=== PATIENT | male | born 1995 | race Caucasian/White ===

== ENCOUNTER 2019-07-29 11:18 | Emergency (ER) | payer BC ==
[2019-07-29 11:39] VITALS: BP 149/86
--- NOTE | 2019-07-29 12:01 | UC ---
Throat Pain/Nasal [place] HPI - HPI Summary HPI Summary: sore throat x 1 day pain is 5 out of 10 , no cough , no nasal congestion , no pnd low grade fever - History of Current Complaint Chief Complaint: UCRespiratory Stated Complaint: ST Time Seen by Provider: 07/29/19 11:47 Hx Obtained From: Patient Onset/Duration: Sudden Onset, Lasting Days - 1, Still Present Severity: Moderate Pain Intensity: 0 Cough: None Associated Signs & Symptoms: Positive: Fever. Negative: Wheezing, Hoarseness, Sinus Discomfort, Nasal Discharge, Vomiting, Rash - Allergies/Home Medications Allergies/Adverse Reactions: Allergies Allergy/AdvReac Type Severity Reaction Status Date / Time amoxicillin Allergy Altered Verified 07/29/19 11:34 Mental Status Home Medications: Home Medications Atorvastatin* [Lipitor 10 MG*] 40 mg PO DAILY 07/29/19 [History Confirmed ] L.acidoph,Paracasei, B.lactis [Probiotic] 1 cap PO DAILY 07/29/19 [History Confirmed 07/29/19] Montelukast Sodium 10 mg PO DAILY 07/29/19 [History Confirmed 07/29/19] PMH/Surg Hx/FS Hx/Imm Hx Previously Healthy: Yes - Surgical History Surgical History: Yes Surgery Procedure, Year, and Place: hernia jesse inguinal - Family History Known Family History: Negative: Hypertension, Diabetes - Social History Alcohol Use: Occasionally Substance Use Type: None Smoking Status (MU): Never Smoked Tobacco Review of Systems All Other Systems Reviewed And Are Negative: Yes Constitutional: Positive: Fever, Chills, Fatigue Skin: Positive: Negative Eyes: Positive: Negative ENT: Positive: Sore Throat Respiratory: Positive: Negative Is Patient Immunocompromised?: No Physical Exam Triage Information Reviewed: Yes Appearance: Well-Appearing, No Pain Distress, Well-Nourished Vital Signs: Initial Vital Signs Temp 98 F 07/29/19 11:36 Pulse 79 07/29/19 11:36 Resp 18 07/29/19 11:36 BP 149/86 07/29/19 11:36 Pulse Ox 100 07/29/19 11:36 Vital Signs Reviewed: Yes Eye Exam: Normal Eyes: Positive: Conjunctiva Clear ENT: Positive: Normal ENT inspection, Hearing grossly normal, Pharyngeal erythema, Nasal congestion, Nasal drainage, TMs normal Respiratory: Positive: Chest non-tender, Lungs clear, Normal breath sounds Cardiovascular: Positive: RRR, No Murmur, Pulses Normal Abdomen Description: Positive: Nontender, No Organomegaly, Soft, Bruit Male Genital Exam: Positive: Normal Genitalia, Normal Prostate, No Hernia Neurological Exam: Normal Neurological: Positive: Alert Skin Exam: Normal Throat Pain/Nasal Course/Dx - Differential Dx/Diagnosis Provider Diagnosis: Pharyngitis Discharge ED - Sign-Out/Discharge Documenting (check all that apply): Patient Departure All imaging exams completed and their final reports reviewed: No Studies - Discharge Plan Condition: Stable Disposition: HOME Patient Education Materials: Pharyngitis (ED) Referrals: No Primary Care Phys,NOPCP [Primary Care Provider] - If Needed - Billing Disposition and Condition Condition: STABLE Disposition: Home
== END 2019-07-29 12:13 | disposition home or self-care (01) ==
LOC: UCCORT 11:18
DX: J02.9 Acute pharyngitis, unspecified (principal); Z88.0 Allergy status to penicillin
CPT/HCPCS: 87651; 99201; G0463